=== PATIENT | female | born 1995 | race Caucasian/White ===

== ENCOUNTER 2018-02-25 20:21 | Emergency (ER) | payer BC, OTHER ==
[~2018-02-25] VITALS: Ht 162.6 cm; Wt 70.0 kg
[~2018-02-25 20:21] MED LIST: LAMI25TA3 OR
[2018-02-25 20:31] VITALS: BP 130/83; PULSE 100; RESP 18; TEMP 98.9; O2SAT 100
--- NOTE | 2018-02-25 20:42 | PD ---
HPI Chief Complaint: ENT Complaint Time Seen by Provider: 20:35 Travel History International Travel<30 days: No Contact w/Intl Traveler<30days: No Traveled to known affect area: No History of Present Illness HPI 22-year-old female presented for evaluation of sore throat. Symptoms are this morning. Hurts to swallow. Symptoms are mild, aggravated by swallowing with no relieving factors. Denies fevers, chills, cough, congestion, rash, recent travel, nausea, vomiting. No sick contacts. No other complaints at this time. PFSH Past Medical History Medical History: Denies Significant Hx ADHD: No Cancer: No Cardiovascular Problems: No Diabetes: No Diminished Hearing: No Psychiatric: No Migraines: No Seizures: No Thyroid Disease: No Ulcer: No Tetanus Vaccination: Unknown Influenza Vaccination: No ?: Not LMP: 02/16/2018 Past Surgical History Oral Surgery: Yes (wisdom teeth) Social History Alcohol Use: Yes (occasionally) Tobacco Use: No Substance Use: No Allergies-Medications (Allergen,Severity, Reaction): Coded Allergies: No Known Allergies (Unverified Adverse Reaction, Unknown, 02/25/18) Reported Meds & Prescriptions Reported Meds & Active Scripts Active Amoxicillin 875 Mg Tab 875 Mg PO BID 10 Days Reported Lamictal (Lamotrigine) 25 Mg Tab 25 Mg OR BID Review of Systems Except as stated in HPI: all other systems reviewed are Neg Physical Exam Narrative GENERAL: Well-developed well-nourished female no acute distress SKIN: Warm and dry. HEAD: Atraumatic. Normocephalic. EYES: Pupils equal and round. No scleral icterus. No injection or drainage. ENT: No nasal bleeding or discharge. Mucous membranes pink and moist. There is oral pharyngeal erythema without exudate. Uvula midline with no mass-effect. NECK: Trachea midline. No JVD. Mild anterior cervical lymphadenopathy, nontender. CARDIOVASCULAR: Regular rate and rhythm. No murmur appreciated. RESPIRATORY: No accessory muscle use. Clear to auscultation. Breath sounds equal bilaterally. Data Data Last Documented VS Vital Signs Date Time Temp Pulse Resp B/P (MAP) Pulse Ox O2 Delivery O2 Flow Rate FiO2 02/25/18 20:31 98.9 100 18 130/83 (99) 100 Orders Orders Group A Rapid Strep Screen (02/25/18 20:38) Amoxicillin (Trimox) (02/25/18 21:30) Ed Discharge Order (02/25/18 21:23) [facility] Medical Decision Making Medical Screen Exam Complete: Yes Emergency Medical Condition: Yes Medical Record Reviewed: Yes Differential Diagnosis Pharyngitis, tonsillitis, peritonsillar abscess, infectious mononucleosis, herpangina, epiglottitis, retropharyngeal abscess Narrative Course Rapid strep screen is positive. The patient will be started on amoxicillin, first dose provided tonight. Diagnosis Primary Impression: Streptococcal pharyngitis Additional Instructions: Medication as prescribed. Stay well hydrated and well-nourished. Return for any emergent medical conditions. Med/Other Pt SpecificInfo: Prescription(s) given Scripts Amoxicillin (Amoxicillin) 875 Mg Tab 875 MG PO BID for Infection for 10 Days, #20 TAB 0 Refills Prov: Audrey Peraza MD 02/25/18 Disposition: 01 DISCHARGE HOME Condition: Stable Sean Iraheta Feb 25, 2018 20:42
[2018-02-25] MEDS ORDERED: AMOX875T PO (21:24)
[2018-02-25] MEDS ORDERED: AMOXICILLIN 875 MG TAB PO ONE (21:30)
== END 2018-02-25 21:31 | disposition home or self-care (01) ==
LOC: NEPD 20:21
DX: J02.0 Streptococcal pharyngitis (principal); B95.0 Streptococcus, group A, as the cause of diseases classified elsewhere
CPT/HCPCS: 87880; 99283